=== PATIENT | female | born 1945 | race African-American/Black ===

== ENCOUNTER 2016-12-01 13:26 | Inpatient (IN) | payer MEDICARE, MEDICAID ==
[~2016-12-01] VITALS: Ht 165.1 cm; Wt 108.9 kg
[2016-12-01 14:04] LABS: BASOPHILS % (AUTO) 1.1 % (0.0-2.0); EOSINOPHILS % (AUTO) 1.2 % (0.0-3.0); LYMPHOCYTES % (AUTO) 19.2 % (20.0-45.0); MEAN CORPUSCULAR HEMOGLOBIN 33.1 PG (27.0-31.0); MEAN CORPUSCULAR VOLUME 100 FL (80-99); MEAN PLATELET VOLUME 6.6 FL (6.5-10.1); MONOCYTES % (AUTO) 11.1 % (1.0-10.0); NEUTROPHILS % (AUTO) 67.3 % (45.0-75.0); PLATELET COUNT 250 K/UL (150-450); RED CELL DISTRIBUTION WIDTH 11.7 % (11.6-14.8); WHITE BLOOD COUNT 7.9 K/UL (4.8-10.8)
[2016-12-01 14:18] LABS: ALANINE AMINOTRANSFERASE 119 U/L (3-33); ALBUMIN/GLOBULIN RATIO 1.5 (1.0-2.7); ANION GAP 16 (5-15); ASPARTATE AMINO TRANSFERASE 68 U/L (5-40); CARBON DIOXIDE 25 mEQ/L (20-30); CHLORIDE 99 mEQ/L (98-107); CREATININE 1.7 mg/dL (0.5-0.9); GLOMERULAR FILTRATION RATE 36.2 mL/min (>60); HEMOLYSIS 18; POTASSIUM 5.1 mEQ/L (3.4-4.9); SODIUM 140 mEQ/L (135-145); TOTAL PROTEIN 6.6 g/dL (6.6-8.7); TROPONIN I < 0.30 ng/mL (<=0.30)
[2016-12-01 14:28] LABS: CKMB < 1.5 ng/mL (< 3.8)
--- NOTE | 2016-12-01 14:39 | Emergency Room Report ---
History of Present Illness General Chief Complaint: Dizziness Source: Patient Present Illness HPI 70 YOF BIBEMS from PMD's office after ?syncopal episode. Patient has been "weak " and "feeling sick with a cold" on last day of Abx today (doesnt know name of Abx). Went to PMD office for followup today, allegedly passed out in office. "[place]udson like film came over my eyes." Denies chest pain, SOB, abd pain, urinary complaints, headache. Had juice today. Took BP med. Didnt eat much. Had pacemaker placed 10 years ago for "slow heart rate." No history of CVA or AMI. Allergies: Coded Allergies: No Known Allergies (Unverified , 12/01/16) Patient History Past Medical History: HTN Past Surgical History: pacemaker Pertinent Family History: none Social History: Denies: alcohol use, drug use, smoking Now: No Immunizations: UTD Nursing Documentation-PMH Hx Cardiac Problems: No Hx Hypertension: Yes Review of Systems All Other Systems: negative except mentioned in HPI Physical Exam Vital Signs Date Time Temp Pulse Resp B/P Pulse Ox O2 Delivery O2 Flow Rate FiO2 12/01/16 13:05 97.9 78 16 140/80 99 Room Air Sp02 EP Interpretation: reviewed, abnormal General Appearance: normal inspection, well appearing, no apparent distress, alert, GCS 15, non-toxic Head: normocephalic, atraumatic Eyes: bilateral eye EOMI, bilateral eye PERRL ENT: normal ENT inspection, hearing grossly normal, normal voice Neck: normal inspection, full range of motion, supple, no bony tend Respiratory: normal inspection, lungs clear, normal breath sounds, no respiratory distress, no retraction, no wheezing Cardiovascular #1: regular rate, rhythm, no edema Gastrointestinal: normal inspection, normal bowel sounds, non tender, soft, no guarding, no hernia Genitourinary: no CVA tenderness Musculoskeletal: normal inspection, back normal, normal range of motion, Adria' s Sign negative Neurologic: normal inspection, alert, oriented x3, responsive, multimedia services coordinator III-XII nml as tested, motor strength/tone normal, speech normal Psychiatric: normal inspection, judgement/insight normal, mood/affect normal Skin: normal inspection Lymphatic: normal inspection Medical Decision Making Medicare Attestation I Amanuel Joyner MD hereby attest that the medical record entry for date of service, 08/30/16 accurately reflects signatures/notations that I made in my capacity as MD when I treated/diagnosed the above listed Medicare beneficiary. I attest that this information is true, accurate and complete to the best of my knowledge. I understand that any falsification, omission, or concealment of material fact may subject me to administrative, civil, or criminal liability. This patient warrants hospital admission for extreme of age and has a condition that cannot be treated as outpatient Diagnostic Impression: Primary Impression: Syncope Qualified Codes: R55 - Syncope and collapse Additional Impressions: JP (acute kidney injury) Elevated liver enzymes ER Course Labs: Normal H&H. No leuks. Troponin 0. Elevated serumCr. Elevated LFTs but normal bili. Mild hyperK. CT head negative for mass, ICH on ED review CXR no PNA ECG is AV paced. Multiple PVCs on monitor A: - ?Syncope - JP, likely dehydration, poor PO intake - Elevated LFTs; no abd pain or ttp on exam. Hydrating with NS IVF Will treat mild hyperK with [address] Mehta for tele bed at 239pm EKG Diagnostic Results Rate: other - AV paced ST Segments: no acute changes ASA given to the pt in ED: No Rhythm Strip Diag. Results EP Interpretation: yes Rate: 75 Rhythm: NSR, other - Multiple PVCs Chest X-Ray Diagnostic Results EP Interpretation: Yes Findings: no consolidation, no effusion, no acute cardiopulmonary disease, other - Pacemaker on right side of chest Number of Views: 1 Last Vital Signs Date Time Temp Pulse Resp B/P Pulse Ox O2 Delivery O2 Flow Rate FiO2 12/01/16 13:05 97.9 78 16 140/80 99 Room Air Status: improved Disposition: ADMITTED INPATIENT Referrals: NOT CHOSEN IPA/,REFERRING (PCP) AMANUEL JOYNER M.D. Dec 01, 2016 14:39
[2016-12-01] MEDS ORDERED: Albuterol ud Inhalation HHN ONE (14:45)
--- NOTE | 2016-12-01 14:51 | Diagnostic Imaging Report ---
Indication: Dizziness Technique: Contiguous 5 mm thick transaxial imaging of the head obtained in a Siemens Sensation [address] scanner. Soft tissue and bone windows generated. Total Dose length Product (DLP): [address] Dose Index Volume (CTDIvol): 70.38 mGy Comparison: none Findings: There is mild prominence of the ventricles, basal cisterns, and cerebral sulci consistent with atrophy. Mild, nonspecific, white matter hypoattenuation is noted throughout the brain consistent with chronic small vessel disease. There is no midline shift, edema, acute hemorrhage, mass effect, or abnormal extra-axial fluid collections. Bones and extra osseous soft tissues are unremarkable. Impression: No acute intracranial bleed, mass effect or edema. Mild atrophy of the brain. Nonspecific white matter hypoattenuation probably due to chronic small vessel disease. The CT scanner at [facility] is accredited by the [employer] and the scans are performed using protocols designed to limit radiation exposure to as low as reasonably achievable to attain images of sufficient resolution adequate for diagnostic evaluation.
[2016-12-01 15:43] VITALS: BP 94/60
[2016-12-01 19:36] VITALS: BP 110/83
[2016-12-01] MEDS ORDERED: BENICAR5 MG ORAL (19:36)
[2016-12-01] MEDS ORDERED: ASPIRIN81 M3 PO (19:36)
--- NOTE | 2016-12-01 21:48 | History and Physical Report ---
DATE OF ADMISSION: 12/01/2016 CHIEF COMPLAINT: Near syncope, dehydration, acute renal failure, and hepatitis. HISTORY OF PRESENT ILLNESS: The patient is a 70-year-old female. She has a history of hypertension and pacemaker, presented from her doctor's office with a near syncopal episode. According to the patient, she has felt weak for the last several days. She apparently has been treated with antibiotics for bronchitis. While at doctor's office, she felt tired and fatigued. Later hit on the table. When nurses came, she told them that she felt weak and dizzy. She was slightly hypotensive and diaphoretic. Paramedics were called and the patient was brought to the emergency room. On evaluation there, she was hypotensive. She had a creatinine of 1.7, which is higher than her baseline. She has been treated with intravenous fluids and is now being admitted for further evaluation and care. In the emergency room, the patient had a CAT scan of the head that was unremarkable. PAST MEDICAL HISTORY: As above. PAST SURGICAL HISTORY: Includes cholecystectomy. CURRENT MEDICATIONS: Include allopurinol, Benicar, and Creon. SOCIAL HISTORY: Negative for tobacco, ethanol, or drugs. FAMILY HISTORY: Noncontributory. REVIEW OF SYSTEMS: General: Positive malaise and weakness. HEENT: No headaches or visual changes. Cardiopulmonary: No chest pain or shortness of breath. Gastrointestinal: No nausea. Mild anorexia. No nausea or vomiting. No diarrhea. Genitourinary: No urgency or frequency. Musculoskeletal: No joint pain or swelling. Neurologic: No evidence of seizures. PHYSICAL EXAMINATION: VITAL SIGNS: Temperature 97.8, pulse 77, respirations 18, and blood pressure 94/60. GENERAL: The patient is a well-developed female, in no apparent distress. She is awake, alert, and oriented x4. HEENT: Her pupils are equal, round, and reactive to light. Sclerae are anicteric. Oropharynx is clear. NECK: Supple. HEART: Regular rate and rhythm. LUNGS: Clear. ABDOMEN: Soft, nontender, and nondistended. EXTREMITIES: Without clubbing, cyanosis, or edema. NEUROLOGIC: Cranial nerves II through XII are intact. Motor strength is 5/5. Sensation is intact bilaterally. Reflexes 2+. LABORATORY AND DIAGNOSTIC DATA: Sodium was 140, potassium 5.1, chloride 99, bicarbonate 25, BUN 16, and creatinine 1.7. AST 68, ALT was 119. White count 8, hemoglobin 12, hematocrit 37, and platelets of 250,000. EKG results are currently pending. ASSESSMENT: 1. This is a pleasant female with complaints of near syncopal episode, likely secondary to dehydration. 2. Dehydration. 3. Acute renal failure. 4. Near syncope. 5. Transaminitis. 6. History of pacemaker. PLAN: 1. Intravenous hydration. 2. Discontinue the patient's diuretics. 3. We will monitor current blood pressure regimen and adjust as needed. 4. Cardiology consultation. 5. We will interrogate the patient's pacemaker. Keanu Mehta M.D. DR: KELLY JOB#: [id number] CC:
[2016-12-01] MEDS: Heparin 5000 units/ml inj SUBQ SCH (22:26)
--- NOTE | 2016-12-01 23:58 | History and Physical Report ---
DATE OF ADMISSION: 12/01/2016 CHIEF COMPLAINT: Near syncope, weakness, acute renal failure, and hepatitis. HISTORY OF PRESENT ILLNESS: The patient is a 70-year-old female. She has a history of pacemaker and hypertension. She presented from a doctor's office with a near syncopal episode. According to the patient, she has been ill for the last week. She has been on antibiotics for bronchitis. She had a followup with a doctor, who was in the examining room. She states she placed her head down on the table to rest and she became diaphoretic and dizzy. She did not lose consciousness, but felt weak. Her doctor called paramedics and the patient is now transferred for further evaluation and care. Keanu Mehta M.D. DR: LISA JOB#: [id number] CC:
[2016-12-02 00:23] VITALS: BP 113/66
--- NOTE | 2016-12-02 03:38 | Consultation ---
DATE OF CONSULTATION: 12/01/2016 CARDIOLOGY CONSULTATION: CONSULTING PHYSICIAN: Jarrod Staley M.D. REQUESTING PHYSICIAN: Keanu Mehta M.D. REASON FOR CONSULTATION: Near syncope in the setting of conduction system disease of the heart. HISTORY OF PRESENT ILLNESS: This is a 70-year-old female. She has a permanent pacemaker. She was seeing her doctor today. She felt weak, lightheaded, put her head down, and almost passed out, but did not lose consciousness completely. She was transported by EMS to this emergency room. She has been feeling ill for the past week with what she describes it as bronchitis and has been on antibiotics. She was diaphoretic and hypotensive, when the paramedics evaluated her. She has been given IV fluids in the emergency room and had a CAT scan of the brain that revealed nonspecific diffuse white matter disease. Cardiac monitoring reveals AV pacing with frequent PVCs. PAST MEDICAL AND SURGICAL HISTORY: Hypertension, permanent pacemaker, hyperuricemia, and prior cholecystectomy. MEDICATIONS: Prior to admission reviewed and reconciled. SOCIAL HISTORY: Negative for smoking, alcohol, or substance abuse. FAMILY HISTORY: Noncontributory. REVIEW OF SYSTEMS: No fevers. She has had weakness and her upper respiratory infection is noted. No history of myocardial infarction or exertional chest pain. No history of asthma or blood clots in the legs. No dysuria or frequency. No change in bowel habits, melena, or bright red blood per rectum. No history of seizure or prior stroke. PHYSICAL EXAMINATION: VITAL SIGNS: Afebrile, blood pressure 94/60, pulse rate 77, and respiratory rate 18. GENERAL: Presently awake and alert, no distress. HEENT: Conjunctivae are pink. Sclerae are anicteric. Oropharynx is clear. Mucous membranes are dry. NECK: Supple. No bruits. Jugular venous pressure is flat. LUNGS: Clear. CARDIAC: Regular rhythm and rate. Normal S1. Paradoxically split S2. Occasional ectopic beats. No murmur. ABDOMEN: Soft and nontender. No guarding or rebound. EXTREMITIES: No clubbing, cyanosis, or edema. NEUROLOGIC: Entirely nonfocal. LABORATORY DATA: Sodium is 140, potassium 5.1, BUN 16, creatinine 1.7, bicarbonate 25, white count 8, and hemoglobin 12. IMPRESSION: 1. Near syncope. 2. Hypovolemia. 3. Dehydration. 4. Acute kidney injury. 5. Near syncope due to hypoperfusion and hypovolemia. 6. Conduction system disease with permanent pacemaker. 7. Mild transaminitis. 8. Recent upper respiratory infection. PLAN: 1. Hydration. 2. Hold diuretics. 3. Pacemaker interrogation. 4. Cardiac monitoring. 5. Blood pressure support with volume resuscitation by fluid challenges. 6. Continue anti-platelet therapy. 7. Deep venous thrombosis prophylaxis. 8. Neurological check. Jarrod Staley M.D. DR: Leta JOB#: [id number] CC:
[2016-12-02 04:18] VITALS: BP 105/56
[2016-12-02 08:46] VITALS: BP 96/46
[2016-12-02] MEDS: Heparin 5000 units/ml inj SUBQ SCH (09:07)
[2016-12-02 09:47] LABS: ALBUMIN/GLOBULIN RATIO 1.6 (1.0-2.7); CALCIUM 9.1 mg/dL (8.6-10.2); CREATININE 1.1 mg/dL (0.5-0.9); GLOMERULAR FILTRATION RATE 59.9 mL/min (>60); POTASSIUM 4.1 mEQ/L (3.4-4.9); TOTAL PROTEIN 6.5 g/dL (6.6-8.7)
[2016-12-02 09:50] LABS: TROPONIN I < 0.30 ng/mL (<=0.30)
[2016-12-02] MEDS ORDERED: Pseudoephedrine 30mg tab ORAL PRN (10:15)
[2016-12-02] MEDS ORDERED: guaiFENesin 100mg/5ml Liq ud ORAL PRN (10:15)
[2016-12-02 11:49] LABS: APPEARANCE,URINE CLEAR; KETONES,URINE NEGATIVE (NEGATIVE); LEUKOCYTE ESTERASE ,URINE NEGATIVE (NEGATIVE); NITRITE,URINE NEGATIVE (NEGATIVE); PH,URINE 6.5 (4.5-8.0); PROTEIN,URINE NEGATIVE (NEGATIVE); UROBILINOGEN,URINE NORMAL MG/DL (0.0-1.0)
[2016-12-02 12:08] VITALS: BP 113/71
--- NOTE | 2016-12-02 12:45 | Diagnostic Imaging Report ---
Indication: Abnormal liver function tests. Nausea Technique: Vazquez-scale and duplex images of the upper abdomen were obtained Comparison: None Findings: Gallbladder is surgically absent. . Common bile duct measures 6 mm in diameter. No intrahepatic biliary ductal dilatation. Liver demonstrates diffusely increased echogenicity, consistent with diffuse hepatocellular disease, most likely fatty change.. Portable and hepatic venous Doppler flow is not well visualized appears to be present.. Pancreas is unremarkable. Spleen is unremarkable. Left kidney measures 11.3 cm in length. Right kidney measures 12.1 cm length. Both kidneys demonstrate normal echogenicity. There is no hydronephrosis. No focal abnormality. . Abdominal aorta is partially obscured by bowel gas, visualized portions are non-aneurysmal. Impression: Liver demonstrates diffusely increased echogenicity, consistent with diffuse hepatocellular disease, most likely fatty change. Surgically absent gallbladder. Negative for dilated ducts Note incomplete visualization of the distal abdominal aorta
--- NOTE | 2016-12-02 13:35 | Discharge Summary ---
Discharge Summary Hospital Course Date of Admission Dec 01, 2016 at 19:33 Date of Discharge Admitting Diagnosis CHEST PAIN ,ACS HPI Rizwana Combs is a 70 year old female who was admitted on Dec 01, 2016 at 19:33 for Chest Pain, Acute Coronary Syndrome Hospital Course admitted with near syncope due to dehydration and arf due to dehydration. pt hydrated. labs improved. dc home in stable condition. to follow up with pmd Discharge Condition Upon Discharge: improving Discharge Disposition Patient was discharged to Discharge Diagnoses: (1) JP (acute kidney injury) TEJAS POWELL Dec 02, 2016 13:35
--- NOTE | 2016-12-03 03:28 | Progress Note ---
DATE: 12/02/2016 CARDIOLOGY PROGRESS NOTE SUBJECTIVE: The patient's Biotron[employer] pacemaker was interrogated today and noted to be functioning appropriately with adequate battery life. The patient has been hydrated. She denies dizzy, nausea, or vomiting at this time. Monitored rhythm reviewed sinus with demand pacing noted. No pauses. OBJECTIVE: VITAL SIGNS: Blood pressure 96/46 this morning, now 113/71, heart rate 77, and respiratory rate 18. NECK: Supple. LUNGS: Clear. CARDIAC: Regular rhythm and rate. Normal S1 and S2 with no murmur. ABDOMEN: Soft. EXTREMITIES: No edema. LABORATORY AND DIAGNOSTIC DATA: BUN is 12 and creatinine 1.1. Potassium 4.1. Urinalysis, no active sediment. IMPRESSION: 1. Hypovolemic and orthostatic syncope. 2. Dehydration and hypovolemia, resolved. 3. Acute renal injury due to hypovolemia and acute tubular necrosis, recovered. 4. Permanent pacemaker with stable function. 5. Recovering bronchitis. PLAN: 1. Stable for outpatient followup. 2. Advised not to resume diuretic therapy at this time. 3. Maintain adequate hydration. Jarrod Staley M.D. DR: Stephane JOB#: [id number] CC:
--- NOTE | 2016-12-04 15:00 | Cardiology Report ---
APPROVED REPORT EXAM: Two-dimensional and M-mode echocardiogram with Doppler and color Doppler. INDICATION Bradycardia M-Mode DIMENSIONS IVSd1.0 (0.7-1.1cm)Left Atrium (MM)4.5 (1.6-4.0cm) LVDd1.0 (3.5-5.6cm)Aortic Root2.4 (2.0-3.7cm) PWd5.4 (0.7-1.1cm)Aortic Cusp Exc.1.7 (1.5-2.0cm) IVSs3.4 cm LVDs0.9 (2.5-4.0cm) PWs1.2 cm Normal left ventricular chamber size, systolic function and wall motion. Left ventricular ejection fraction estimated to be 60-65%. Mild left ventricular hypertrophy. Small pericardial fat or effusion. Right cardiac chamber sizes are within normal limits. Moderate left atrial enlargement by 2D. Focal aortic valve sclerosis with adequate cusp excursion Thickened mitral valve leaflets with normal excursion. Mitral annulus and aortic root calcification. Pulmonic valve not well visualized. Normal tricuspid valve structure. IVC is normal in size with physiologic collapse. Probable pacemaker wire present in the right side chambers. A color flow and spectral Doppler study was performed and revealed: No aortic regurgitation. No mitral regurgitation. Left ventricular diastolic dysfunction not obtainable due to arrhythmia. Mild tricuspid regurgitation. Tricuspid systolic velocities suggests peak right ventricular systolic pressure of 19 mmHg
--- NOTE | 2016-12-07 12:20 | Diagnostic Imaging Report ---
APPROVED REPORT CPT Code: 13848 Vascular Symptoms Dizziness and Vertigo CAROTID (BILATERAL) - Imaging reveals no significant plaque within the right and left extracranial carotid arteries. The Doppler spectral flow analysis is within normal limits throughout the extracranial carotid arteries bilaterally. VERTEBRAL- The vertebral arteries are within normal limits.
--- NOTE | 2016-12-29 14:18 | Diagnostic Imaging Report ---
Indication: Dyspnea Comparison: None A single view chest radiograph was obtained. Findings: Pacemakers noted. No definite infiltrate or pulmonary vascular congestion identified. The heart is enlarged. The aorta is mildly enlarged consistent with atherosclerotic vascular disease. The bones are osteopenic. Impression: No acute disease
== END 2016-12-02 15:34 | disposition home or self-care (01) | DRG 684 ==
LOC: EDBD 13:26 → EMR 14:11 → EDBEDREQ 18:47 → 2E 19:33
DX: N17.0 Acute kidney failure with tubular necrosis (principal); I10 Essential (primary) hypertension; Z95.0 Presence of cardiac pacemaker; E86.1 Hypovolemia; I95.1 Orthostatic hypotension; J40 Bronchitis, not specified as acute or chronic; E86.0 Dehydration
CPT/HCPCS: 36415; 70450; 71010; 76700; 80053; 81003; 82550; 82553; 84484; 85025; 87086; 93005; 93306; 93880; 94640; 94664